=== PATIENT | male | born 1940 | race Caucasian/White ===

== ENCOUNTER → 2016-10-26 | Day surgery (SDC) | payer OTHER ==
[2016-10-18 09:42] VITALS: Ht 177.8 cm; Wt 86.4 kg
[~2016-10-26] VITALS: Ht 177.8 cm; Wt 86.4 kg
[~2016-10-26] MED LIST: 500ML BSS 0.3ML EPI 1:1000PF IRRIG ONE; ACETAMINOPHEN 325 MG TAB PO PRN; AMVISC PLUS 0.8ML SYRINGE INT OCU ONE; ASPEC81 PO; ATOR-24 PO; ATROPINE SULFATE 0.1 MG/ML 5ML SYR IV PRN; AcetaZOLAMIDE 250 MG TAB PO SCH; BETAXOLOL HCL 0.25% OP SUSP PER DROP CHARGE OPR SCH; BRIMONIDINE TART 0.2% OP SOLN PER DROP CHARGE ONE; BSS FLUSH ONE; CHOL100010 PO; ENDOCOAT 0.85ML SYRINGE INT OCU ONE; EpINEphrine INJ 1MG/ML AMP 1 MG/ML AMP ONE; GLC500 PO; ISR/5 PO; LACTATED RINGER'S 1000ML 500 ML IV SCH; LIDOCAINE 4% OP SOLN DROP CHARGE ONE; LIDOCAINE 4% OP SOLN DROP CHARGE OPR SCH; LIDOCAINE HCL 1% MPF 2 ML VIAL ONE; METO25TA56 PO; MIDAZOLAM HCL 1 MG/ML 2ML VIAL ONE; MIX: 4ML BSS 1ML EPI 1:1000 PF INSTIL ONE; MOXIFLOXACIN OPH SOLN PER DROP CHARGE ONE; NTRGSL.4 SL; OCUCOAT 1 ML SOLN IO ONE; POVIDONE-IODINE OP SOLN 30 ML BTL ONE; PROPARACAINE 0.5% OP SOLN PER DROP CHARGE OPR SCH; SENNTAB23 PO; SPIR25TA PO; TELM40TA11 PO; TOBRAMYCIN/DEXAMETHASONE OPH OINT PER APPLN CHARGE ONE; fiber caps PO
--- NOTE | 2016-10-26 06:47 | History & Physical Bridge - SC ---
H&P Re-Evaluation Bridge Note: I have examined the patient, reviewed the History & Physical and in the interval since the performance of the History & Physical I have noted the following changes of clinical significance: No changes noted
[2016-10-26] MEDS: PHENYLEPHRINE HCL 2.5% OP SOLN PER DROP CHARGE OPR SCH ×2 (07:14→07:21)
[2016-10-26] MEDS: TROPICAMIDE 1% OP SOLN PER DROP CHARGE OPR SCH ×2 (07:15→07:22)
[2016-10-26] MEDS: CYCLOPENTOLATE HCL 1% OP SOLN PER DROP CHARGE OPR SCH ×2 (07:16→07:23)
[2016-10-26] MEDS: MOXIFLOXACIN OPH SOLN PER DROP CHARGE OPR SCH ×2 (07:17→07:27)
--- NOTE | 2016-10-26 07:52 | Discharge Instructions-SurgCtr ---
Discharge Instructions Date of Service Oct 26, 2016. Visit Reason for Visit: Cataract Right Eye Discharge Discharge Diagnosis / Problem: lens implant right eye Discharge Goals Goal(s): Improve function Activity Recommendations Activity Limitations: resume your previous activity Lifting Limitations: no more than 10 pounds Exercise/Sports Limitations: gradually increase as tolerated May Resume Sexual Activity: when tolerated Shower/Bathe: tomorrow Driving or Machine Use: resume 1 day after discharge Anesthesia . Post Anesthesia Instructions: If you have had General Anesthesia or IV Sedation: * Do not drive today. * Resume driving when surgeon permits. * Do not make important decisions or sign legal documents today. * Call surgeon for: 1. Temperature elevations greater than 101 degrees F. 2. Uncontrollable pain. 3. Excessive bleeding. 4. Persistent nausea and vomiting. 5. Medication intolerance (nausea, vomiting or rash). * For nausea and vomiting use only clear liquids such as: tea, soda, bouillon until nausea subsides, then gradually increase diet as tolerated. * If you have any concerns or questions, call your surgeon's office. If physician is unavailable and it is an emergency, call 911 or go to the nearest emergency room. . Instructions / Follow-Up Instructions / Follow-Up ACTIVITY RECOMMENDATIONS: * Light activities. * Mild irritation and blurred vision are common for the first few days. * You may walk outside, read, watch television. * Redness around the white part of the eye is common. MEDICATIONS: Resume previous medications unless instructed otherwise by your surgeon. * Take white Diamox (Acetazolamide) tablet at 1 pm today. Start all eye drops at 1 pm today: * Eye drops (today and tomorrow): Prednisone - one drop in operative eye every 3 hours while awake Ofloxacin - one drop in operative eye every 3 hours while awake SPECIAL CARE INSTRUCTIONS: * Tape plastic shield over eye to sleep at night. Call your doctor at with any concerns or problems. FOLLOW UP VISIT: Follow-up with Dr Mata at [place] office as scheduled. Diet Recommendations Home Diet: no limitations Procedures Procedures Performed: cataract extraction with lens implant Pending Studies Studies pending at discharge: no Medical Emergencies . Who to Call and When: Medical Emergencies: If at any time you feel your situation is an emergency, please call 911 immediately. . Non-Emergent Contact Non-Emergency issues call your: Family Dentist Call Non-Emergent contact if: your pain is not controlled [phone] . . "Provider Documentation" section prepared by Micah Mata. .
--- NOTE | 2016-10-26 07:54 | [facility] Operative Report ---
Operative Report Date of Service Oct 26, 2016. Operative Report 1. PREOPERATIVE DIAGNOSIS: Senile Posterior Subcapsular Cataract, right eye. 2. POSTOPERATIVE DIAGNOSIS: Senile Posterior Subcapsular Cataract, right eye. 3. PROCEDURE: Phacoemulsification of right cataract with posterior chamber lens implant, type Bausch & Lomb, model MX60, power +22 diopters. ANESTHESIA: Local standby. SURGEON: Dr. Mata. COMPLICATIONS: None. OPERATING TIME: 10 minutes. 4. OPERATION AND FINDINGS: DESCRIPTION OF PROCEDURE: The right pupil was dilated. The anesthetic was administered using a topical technique. The right eye was prepped and draped. A speculum was placed. A clear corneal incision was formed. The chamber was filled with Amvisc Plus and Endocoat. Epinephrine solution was used. A paracentesis was placed. A capsulorrhexis was performed. The nucleus was hydrodissected. The lens was removed with phacoemulsification. Time was 2.72 seconds. The aspiration unit was used to remove the cortex. The capsule was filled with Amvisc Plus. The lens implant was folded and placed into the capsule. The incision was hydrated. The Amvisc was aspirated. The wound was secure. The chamber was deep. The pupil was round. Brimonidine, TobraDex ointment and Vigamox solution were placed. The speculum was removed. The patient was returned to the Recovery Room in stable condition. I attest to the content of the Intraoperative Record and any orders documented therein. Any exceptions are noted below. The scribe's documentation has been prepared in my presence, under my direction and personally reviewed by me in its entirety. I confirm that the note above accurately reflects all work, treatment, procedures, and medical decision making performed by me. I personally scribed for Micah Mata M.D. ([email or web address]) on 10/26/16 at 07:54. Electronically submitted by Radha Snow ([email or web address]).
[2016-10-26 07:58] VITALS: TEMP 36.9
[2016-10-26 08:19] VITALS: BP 128/82; PULSE 59; O2SAT 99
--- NOTE | 2016-10-26 08:22 | Anesthesia Progress Nt - [facility] ---
Anesthesia Post Op Note Date & Time Oct 26, 2016 at 08:21 Vital Signs Pain Intensity: 0 Vital Signs Past 12 Hours Date Time Temp Pulse Resp B/P (MAP) Pulse Ox O2 Delivery O2 Flow Rate FiO2 10/26/16 08:19 59 16 128/82 (97) 99 10/26/16 07:58 36.9 60 14 120/73 (89) 100 Room Air 10/26/16 07:05 37.0 58 20 120/80 (93) 98 Room Air Notes Mental Status: alert / awake / arousable, participated in evaluation Pt Amnestic to Procedure: Yes Nausea / Vomiting: adequately controlled Pain: adequately controlled Airway Patency, RR, SpO2: stable & adequate BP & HR: stable & adequate Hydration State: stable & adequate Anesthetic Complications: no major complications apparent
== END | disposition home or self-care (01) ==
LOC: X.SURG 06:31
PROVIDERS: ATTEND Specialist
DX: H25.041 Posterior subcapsular polar age-related cataract, right eye (principal); I10 Essential (primary) hypertension; Z79.899 Other long term (current) drug therapy

== ENCOUNTER → 2016-11-09 | Day surgery (SDC) | payer OTHER ==
[2016-11-03 10:20] VITALS: Ht 177.8 cm; Wt 86.4 kg
[~2016-11-09] VITALS: Ht 177.8 cm; Wt 86.4 kg
[~2016-11-09] MED LIST changes: +BETAXOLOL HCL 0.25% OP SUSP PER DROP CHARGE OPL SCH; -BETAXOLOL HCL 0.25% OP SUSP PER DROP CHARGE OPR SCH; +EpHEDrine SULFATE INJ 50 MG/ML AMP IV PRN; +LIDOCAINE 4% OP SOLN DROP CHARGE OPL SCH; -LIDOCAINE 4% OP SOLN DROP CHARGE OPR SCH; +PROPARACAINE 0.5% OP SOLN PER DROP CHARGE OPL SCH; -PROPARACAINE 0.5% OP SOLN PER DROP CHARGE OPR SCH
[2016-11-09] MEDS: PHENYLEPHRINE HCL 2.5% OP SOLN PER DROP CHARGE OPL SCH ×2 (08:24→08:29)
[2016-11-09] MEDS: TROPICAMIDE 1% OP SOLN PER DROP CHARGE OPL SCH ×2 (08:25→08:30)
[2016-11-09] MEDS: CYCLOPENTOLATE HCL 1% OP SOLN PER DROP CHARGE OPL SCH ×2 (08:26→08:31)
[2016-11-09] MEDS: MOXIFLOXACIN OPH SOLN PER DROP CHARGE OPL SCH ×2 (08:27→08:39)
--- NOTE | 2016-11-09 09:24 | Discharge Instructions-SurgCtr ---
Discharge Instructions Date of Service Nov 09, 2016. Visit Reason for Visit: Cataract Left Eye Discharge Discharge Diagnosis / Problem: lens implant left eye Discharge Goals Goal(s): Improve function Activity Recommendations Activity Limitations: resume your previous activity Lifting Limitations: no more than 10 pounds Exercise/Sports Limitations: gradually increase as tolerated May Resume Sexual Activity: when tolerated Shower/Bathe: tomorrow Driving or Machine Use: resume 1 day after discharge Anesthesia . Post Anesthesia Instructions: If you have had General Anesthesia or IV Sedation: * Do not drive today. * Resume driving when surgeon permits. * Do not make important decisions or sign legal documents today. * Call surgeon for: 1. Temperature elevations greater than 101 degrees F. 2. Uncontrollable pain. 3. Excessive bleeding. 4. Persistent nausea and vomiting. 5. Medication intolerance (nausea, vomiting or rash). * For nausea and vomiting use only clear liquids such as: tea, soda, bouillon until nausea subsides, then gradually increase diet as tolerated. * If you have any concerns or questions, call your surgeon's office. If physician is unavailable and it is an emergency, call 911 or go to the nearest emergency room. . Instructions / Follow-Up Instructions / Follow-Up ACTIVITY RECOMMENDATIONS: * Light activities. * Mild irritation and blurred vision are common for the first few days. * You may walk outside, read, watch television. * Redness around the white part of the eye is common. MEDICATIONS: Resume previous medications unless instructed otherwise by your surgeon. * Take white Diamox (Acetazolamide) tablet at 1 pm today. Start all eye drops at 1 pm today: * Eye drops (today and tomorrow): Prednisone - one drop in operative eye every 3 hours while awake Ofloxacin - one drop in operative eye every 3 hours while awake SPECIAL CARE INSTRUCTIONS: * Tape plastic shield over eye to sleep at night. Call your doctor at with any concerns or problems. FOLLOW UP VISIT: Follow-up with Dr Mata at [place] office as scheduled. Diet Recommendations Home Diet: no limitations Procedures Procedures Performed: cataract extraction with lens implant Pending Studies Studies pending at discharge: no Medical Emergencies . Who to Call and When: Medical Emergencies: If at any time you feel your situation is an emergency, please call 911 immediately. . Non-Emergent Contact Non-Emergency issues call your: Housekeeper Head Call Non-Emergent contact if: your pain is not controlled [phone] . . "Provider Documentation" section prepared by Micah Mata. .
--- NOTE | 2016-11-09 09:26 | [facility] Operative Report ---
Operative Report Date of Service Nov 09, 2016. Operative Report 1. PREOPERATIVE DIAGNOSIS: Senile Posterior Subcapsular Cataract, left eye. 2. POSTOPERATIVE DIAGNOSIS: Senile Posterior Subcapsular Cataract, left eye. 3. PROCEDURE: Phacoemulsification of left cataract with posterior chamber lens implant, type Bausch & Lomb, model MX60, power +23.0 diopters. ANESTHESIA: Local standby. SURGEON: Dr. Mata. COMPLICATIONS: None. OPERATING TIME: 10 minutes. 4. OPERATION AND FINDINGS: DESCRIPTION OF PROCEDURE: The left pupil was dilated. The anesthetic was administered using a topical technique. The left eye was prepped and draped. A speculum was placed. A clear corneal incision was formed. The chamber was filled with Amvisc Plus and Endocoat. Epinephrine solution was used. A paracentesis was placed. A capsulorrhexis was performed. The nucleus was hydrodissected. The lens was removed with phacoemulsification. Time was 5.27 seconds. The aspiration unit was used to remove the cortex. The capsule was filled with Amvisc Plus. The lens implant was folded and placed into the capsule. The incision was hydrated. The Amvisc was aspirated. The wound was secure. The chamber was deep. The pupil was round. Brimonidine, TobraDex ointment and Vigamox solution were placed. The speculum was removed. The patient was returned to the Recovery Room in stable condition. I attest to the content of the Intraoperative Record and any orders documented therein. Any exceptions are noted below. The scribe's documentation has been prepared in my presence, under my direction and personally reviewed by me in its entirety. I confirm that the note above accurately reflects all work, treatment, procedures, and medical decision making performed by me. I personally scribed for Micah Mata M.D. ([email or web address]) on 11/09/16 at 09:26. Electronically submitted by Radha Snow ([email or web address]).
[2016-11-09 09:27] VITALS: TEMP 36.4
--- NOTE | 2016-11-09 09:47 | Anesthesia Progress Nt - [facility] ---
Anesthesia Post Op Note Date & Time Nov 09, 2016 at 09:47 Vital Signs Pain Intensity: 0 Vital Signs Past 12 Hours Date Time Temp Pulse Resp B/P (MAP) Pulse Ox O2 Delivery O2 Flow Rate FiO2 11/09/16 08:15 36.6 63 22 123/81 (95) 98 Room Air Notes Mental Status: alert / awake / arousable, participated in evaluation Pt Amnestic to Procedure: Yes Nausea / Vomiting: adequately controlled Pain: adequately controlled Airway Patency, RR, SpO2: stable & adequate BP & HR: stable & adequate Hydration State: stable & adequate Anesthetic Complications: no major complications apparent
[2016-11-09 09:58] VITALS: BP 129/75; PULSE 61; O2SAT 99
== END | disposition home or self-care (01) ==
LOC: X.SURG 07:37
PROVIDERS: ATTEND Specialist
DX: H25.042 Posterior subcapsular polar age-related cataract, left eye (principal); I10 Essential (primary) hypertension; Z79.899 Other long term (current) drug therapy

== ENCOUNTER 2022-06-28 18:36 | Inpatient (IN) ==
[2022-06-28] MEDS ORDERED: SODIUM CHLORIDE 0.9% 1000ML 1,000 ML IV ONE (18:55)
--- NOTE | 2022-06-28 19:00 | Emergency Department Note ---
Impression & Plan COVID-19, Weakness, Elevated troponin ED Provider Note NAME: STEFFANIE STONE AGE: 82 SEX: M : 1940 ARRIVES VIA: Ambulance INFORMANT: Patient ED PROVIDER(S): Pranav Carlin DO CHIEF COMPLAINT: covid + and weak HPI: Patient is an 82-year-old male who presents the ER with a past medical history of ischemic cardiomyopathy, CAD, systolic heart failure with a defibrillator in place with symptoms that started about 9 days ago. He and his both tested positive for COVID about 4 days ago. He notes he was having cough, congestion and shortness of breath with the coughing. The coughing has improved about 90%. He now just feels very weak and rundown. He is having diarrhea. No dysuria urgency or frequency. No belly pain. No shortness of breath unless he is coughing. He is bringing up some phlegm. No fevers. Overall he is feeling better but still feels very tired and lightheaded and consequently came in. PAST MEDICAL HISTORY:See Below PAST SURGICAL HISTORY:See Below FAMILY HISTORY:See Below SOCIAL HISTORY:See Below HOME MEDICATIONS:See Below ALLERGIES:See Below VITALS:See Below PHYSICAL EXAMINATION: GENERAL: Sitting up in bed, alert, disheveled, intermittent cough EYE EXAM: normal conjunctiva. OROPHARYNX: mucous membranes are dry NECK: supple, no nuchal rigidity, no adenopathy, non-tender LUNGS: Clear to auscultation. Normal chest wall mechanics HEART: no murmurs, S1 normal and S2 normal ABDOMEN: abdomen soft, non-tender, normo-active bowel sounds, no masses, no mario ound or guarding. UPPER EXTREMITIES: upper extremities are grossly normal. LOWER EXTREMITIES: No pitting edema. NEURO EXAM: Normal sensorium, cranial nerves II-XII grossly intact, normal speech, no gross weakness of arms, no gross weakness of legs. MEDICAL DECISION MAKING: Patient is an 82-year-old male who presents the ER via EMS was found to be hypotensive and has COVID infection was started about 9 days ago. IV was established blood work was obtained. He was given IV fluids prior to arrival. Labs show no significant leukocytosis or anemia. BMP with mild hypokalemia at 3.4. Creatinine at 1.9 consistent with baseline. COVID is positive. Troponin was elevated at 41 with no previous to based off of. EKG is unchanged from previous. External records were reviewed. He was given IV fluids. He was updated bedside. He was discussed with the hospitalist for further evaluation treatment and management. Triage Nursing notes reviewed. Limited review of prior medical records performed Vital Signs: reviewed and remarkable for no significant abnormalities Differential diagnosis: Differential diagnoses includes but is not limited to pneumonia, bronchitis, COPD/Asthma exacerbation, pneumothorax, pulmonary embolism, congestive heart failure, acute coronary syndrome ER treatment provided: See below Diagnostics interpreted by me include EKG and cardiac monitoring as listed below: -Cardiac Monitoring: An order was placed for continuous cardiac monitoring. The monitor shows a rate of 72 with sinus rhythm. -ECG: Atrial paced rate of 62 Left axis PVC QTc 440 Septal Q waves as well as inferior Q waves with no significant change from previous -Laboratory studies:Interpreted by me as stated above in MDM and shown below. Imaging studies: Xrays: As interpreted by me: Portable AP upright 1 view of the chest shows no focal infiltrate CTs show: none Consultation(s): As described in [facility] Procedures:none Critical Care: None Past Med/Surg History Medical History Chronic systolic heart failure Coronary artery disease Diabetes mellitus, type 2 Dual implantable cardioverter-defibrillator in situ (~11/05/10) meditronic--replaced 04/10/18 Ischemic cardiomyopathy Myocardial Infarction (~02/20/09) had heart cath with 1 stent placed---follows with Dr. Gonzales--was on eliquis, however pt states that was stopped and he currently takes 81mg aspirin daily Sensation of foreign body in throat reason for scheduled EGD Surgical History History of bilateral cataract extraction History of cardiac cath (~2008) with 1 stent placed History of cholecystectomy History of heart artery stent (~02/20/09) 1 stent placed History of hernia repair History of tooth extraction all upper teeth removed S/P ICD (internal cardiac defibrillator) procedure (~11/05/10) meditronic--originally placed @ [facility] 11/05/10--replaced 04/10/18 Family History Other Family history non-contributory No family history of adverse response to anesthesia Social History Smoking Status: Former smoker Second Hand Exposure: No; Hx Alcohol Use: Yes Alcohol type: beer Hx Substance Use: No Preferred Language: [place] Communication Ability: Effective [place] [place] Required: No Beliefs That Will Affect Care: None marital status: Current Living Situation: Spouse Feels Safe at Home: Yes Assistive Devices: Denture - Upper and Glasses Allergies Allergies Allergy/AdvReac Type Severity Reaction Status Date / Time lisinopril Allergy Intermediate HIVES Verified 03/14/22 10:44 Home Meds Home Medications Medication Instructions Recorded Confirmed docusate sodium 100 mg capsule 100 mg PO BID 01/03/19 06/28/22 furosemide 40 mg tablet 40 mg PO QAM #30 tabs 01/03/19 06/28/22 nitroglycerin 0.4 mg sublingual 0.4 mg sublingual Q5M PRN chest 01/03/19 06/28/22 tablet pain #25 tabs spironolactone 25 mg tablet 25 mg PO QAM #30 tabs 01/03/19 06/28/22 atorvastatin 80 mg tablet 80 mg PO HS 02/28/20 06/28/22 aspirin 81 mg chewable tablet 81 mg PO DAILY 06/28/22 06/28/22 (Aspirin Childrens) carvedilol 6.25 mg tablet 6.25 mg PO AMHS 06/28/22 06/28/22 cholecalciferol (vitamin D3) 50 50 mcg PO QAM 06/28/22 06/28/22 mcg (2,000 unit) capsule (Vitamin D3) dulaglutide 3 mg/0.5 mL 3 mg subcut WK 06/28/22 06/28/22 subcutaneous pen injector (Trulicity) guaifenesin 400 mg tablet 400 mg PO BID 06/28/22 06/28/22 Previous Rx's Medication Instructions Recorded omeprazole 20 mg capsule,delayed 20 mg PO BID 3 months #180 caps 02/08/22 release sacubitril 24 mg-valsartan 26 mg 1 tab PO BID #180 tabs 03/01/22 tablet (Entresto) Results & Data (ED) Vital Signs Vital Signs - 24 hr 06/28/22 18:45 06/28/22 18:45 06/28/22 19:23 Temperature 36.9 C Temperature Source Oral Pulse Rate 70 60 Pulse Rate from SpO2 Sensor 60 Respiratory Rate 14 21 Blood Pressure 108/85 Blood Pressure Mean 92 Pulse Oximetry 98 96 Oxygen Delivery Method Room Air Room Air Room Air Sepsis Recent Fever Within 48 Hours No Sepsis New/Unexplained Change in Mental Status No Sepsis Action Taken by Nursing No Action Required 06/28/22 19:30 06/28/22 19:59 06/28/22 19:59 Temperature Temperature Source Pulse Rate 60 60 Pulse Rate from SpO2 Sensor 60 60 Respiratory Rate 19 20 Blood Pressure 120/60 Blood Pressure Mean 80 Pulse Oximetry 95 95 Oxygen Delivery Method Sepsis Recent Fever Within 48 Hours Sepsis New/Unexplained Change in Mental Status Sepsis Action Taken by Nursing 06/28/22 20:00 06/28/22 20:00 06/28/22 20:30 Temperature Temperature Source Pulse Rate 63 60 Pulse Rate from SpO2 Sensor 34 L 60 Respiratory Rate 19 19 Blood Pressure 103/62 Blood Pressure Mean 75 Pulse Oximetry 94 96 Oxygen Delivery Method Sepsis Recent Fever Within 48 Hours Sepsis New/Unexplained Change in Mental Status Sepsis Action Taken by Nursing 06/28/22 21:00 06/28/22 21:00 06/28/22 21:30 Temperature Temperature Source Pulse Rate 59 L 59 L Pulse Rate from SpO2 Sensor 59 L 58 L Respiratory Rate 21 19 Blood Pressure 108/62 Blood Pressure Mean 77 Pulse Oximetry 95 97 Oxygen Delivery Method Sepsis Recent Fever Within 48 Hours Sepsis New/Unexplained Change in Mental Status Sepsis Action Taken by Nursing 06/28/22 22:21 06/28/22 22:30 06/28/22 22:41 Temperature Temperature Source Pulse Rate 68 60 Pulse Rate from SpO2 Sensor 60 Respiratory Rate 17 13 Blood Pressure 113/67 Blood Pressure Mean 82 Pulse Oximetry 96 Oxygen Delivery Method Sepsis Recent Fever Within 48 Hours Sepsis New/Unexplained Change in Mental Status Sepsis Action Taken by Nursing 06/28/22 22:41 06/28/22 23:00 06/28/22 23:30 Temperature Temperature Source Pulse Rate 79 63 60 Pulse Rate from SpO2 Sensor 79 64 Respiratory Rate 18 23 Blood Pressure Blood Pressure Mean Pulse Oximetry 95 90 Oxygen Delivery Method Sepsis Recent Fever Within 48 Hours Sepsis New/Unexplained Change in Mental Status Sepsis Action Taken by Nursing 06/28/22 23:30 06/29/22 00:00 06/29/22 00:00 Temperature Temperature Source Pulse Rate 60 60 Pulse Rate from SpO2 Sensor 60 60 Respiratory Rate 11 L 23 Blood Pressure 87/56 L Blood Pressure Mean 66 Pulse Oximetry 93 90 Oxygen Delivery Method Sepsis Recent Fever Within 48 Hours Sepsis New/Unexplained Change in Mental Status Sepsis Action Taken by Nursing 06/29/22 00:04 06/29/22 00:05 Temperature Temperature Source Pulse Rate 60 Pulse Rate from SpO2 Sensor 60 Respiratory Rate 20 Blood Pressure 87/59 L Blood Pressure Mean 68 Pulse Oximetry 92 Oxygen Delivery Method Sepsis Recent Fever Within 48 Hours Sepsis New/Unexplained Change in Mental Status Sepsis Action Taken by Nursing Laboratory Data 06/28/22 19:56 06/28/22 19:56 Lab Results 06/28/22 06/28/22 06/28/22 Range/Units 19:20 19:56 19:56 WBC 5.96 (4.8-10.8) K/ul RBC 4.52 L (4.70-6.10) M/uL Hgb 13.7 L (14.0-18.0) g/dl Hct 40.8 L (42.0-52.0) % MCV 90.3 (80.0-100.0) fL MCH 30.3 (25.0-34.0) pg MCHC 33.6 (32.0-36.0) g/dL RDW Std Deviation 42.0 (36.4-46.3) fL RDW Coeff of Cristela 12.8 (11.5-14.5) % Plt Count 170 (130-400) K/uL MPV 11.5 (9.4-12.4) fL Immature Gran % (Auto) 0.7 % Neut % (Auto) 72.3 % Lymph % (Auto) 17.1 % [place] % (Auto) 9.4 % Eos % (Auto) 0.3 % Baso % (Auto) 0.2 % Neut # (Auto) 4.31 (1.40-6.50) K/uL Lymph # (Auto) 1.02 L (1.2-3.4) K/uL [place] # (Auto) 0.56 (0.11-0.59) K/uL Eos # (Auto) 0.02 (0-0.50) K/uL Baso # (Auto) 0.01 (0-0.2) K/uL Immature Gran # (Auto) 0.04 (0.01-0.20) K/uL Sodium 139 (136-145) mmol/L Potassium 3.4 L (3.5-5.1) mmol/L Chloride 102 (98-107) mmol/L Carbon Dioxide 24 (21-32) mmol/L Anion Gap 13 H (3-11) BUN 46 H (6-23) mg/dl Creatinine 1.98 H (0.6-1.4) mg/dl Est Cr Clr Drug Dosing 30.2 ml/min Est GFR ( Amer) 35.7 ml/min Est GFR (Non-Af Amer) 30.8 ml/min BUN/Creatinine Ratio 23.2 H (10-20) Glucose 151 H (70-99(Fasting)) mg/dl Calcium 8.2 L (8.5-10.1) mg/dl Magnesium 1.9 (1.7-2.4) mg/dl Total Bilirubin 1.0 (0.2-1.0) mg/dl AST 20 (13-39) U/L ALT 11 (7-52) U/L Alkaline Phosphatase 61 (34-104) U/L Troponin I High Sens 41.6 H (0-20) pg/ml Total Protein 6.7 (6.0-8.3) gm/dl Albumin 3.7 (3.4-5.0) gm/dl Globulin 3.0 (2.5-4.0) gm/dl Albumin/Globulin Ratio 1.2 (0.9-2) Lipase 26 (11-82) U/L SARS-CoV-2 (PCR) POSITIVE A* (Negative) Influenza Type A (PCR) Negative (Neg) Influenza Type B (PCR) Negative (Neg) RSV (RT-PCR) Negative (Neg) Administered Medications Lactated Ringer's (Lr) 1,000 mls @ 100 mls/hr IV .Q10H ONE Stop: 06/29/22 07:58 Last Admin: 06/28/22 22:52 Dose: 60 mls/hr Documented By: ENS Discontinued Medications Sodium Chloride (Nss 1000ml) 1,000 mls @ 999 mls/hr IV .Q1H1M ONE Stop: 06/28/22 19:55 Last Infusion: 06/28/22 22:03 Dose: 0 mls/hr Documented By: Admin: 06/28/22 19:56 Dose: 999 mls/hr Documented By: AW Potassium Chloride (Potassium Chloride Pwd 20 Meq Pack) 40 meq PO NOW STA Stop: 06/28/22 21:59 Last Admin: 06/28/22 22:52 Dose: 40 meq Documented By: ENS Imaging Data Radiologist's Impression: Chest X-Ray 06/28/22 18:55 XR chest 1V portable CLINICAL HISTORY: Chest pain, nonspecific COMPARISON STUDY: Chest radiograph May 27, 2019. FINDINGS: Left subclavian pacer/AICD is in place. Cardiomegaly is unchanged. There is no evidence for pulmonary edema. There is no pneumothorax or pleural effusion. No consolidation is identified. No change in appearance of the chest. IMPRESSION: No acute cardiopulmonary findings. No change in appearance of the chest. ACT 112: Negative or not required by law. Electronically signed by: Torin Rene M.D. 06/28/2022 7:32 PM Discharge Plan Visit Data Chief Complaint: Illness Stated Complaint: SOB, COVID + ED Provider: Pranav Carlin Discharge Problem: COVID-19, Weakness, Elevated troponin Forms Stand Alone Forms: My [facility] Prescriptions Prescriptions: No Action Entresto 24-26 mg tablet 1 tab PO BID Qty: 180 3RF Rx Instructions: jacinta says q am .. first indicates bid...our old record says bid spironolactone 25 mg tablet 25 mg PO QAM Qty: 30 docusate sodium 100 mg capsule 100 mg PO BID furosemide 40 mg tablet 40 mg PO QAM Qty: 30 nitroglycerin 0.4 mg tablet, sublingual 0.4 mg SL Q5M PRN (Reason: chest pain) Qty: 25 atorvastatin 80 mg tablet 80 mg PO HS omeprazole 20 mg capsule,delayed release(DR/EC) 20 mg PO BID 90 Days Qty: 180 3RF cholecalciferol (vitamin D3) [Vitamin D3] 50 mcg (2,000 unit) Capsule 50 mcg PO QAM Trulicity 3 mg/0.5 mL pen injector 3 mg SUBCUT WK carvedilol 6.25 mg tablet 6.25 mg PO AMHS aspirin [Aspirin Childrens] 81 mg Tablet,Chewable 81 mg PO DAILY guaifenesin 400 mg Tablet 400 mg PO BID Referrals Referrals: Jose Alfredo Ames MD [Primary Care Provider] -
--- NOTE | 2022-06-28 19:34 | XRay Report ---
XR chest 1V portable CLINICAL HISTORY: Chest pain, nonspecific COMPARISON STUDY: Chest radiograph May 27, 2019. FINDINGS: Left subclavian pacer/AICD is in place. Cardiomegaly is unchanged. There is no evidence for pulmonary edema. There is no pneumothorax or pleural effusion. No consolidation is identified. No ch saloni in appearance of the chest. IMPRESSION: No acute cardiopulmonary findings. No change in appearance of the chest. ACT 112: Negative or not required by law. Electronically signed by: Torin Rene M.D. 06/28/2022 7:32 PM
[2022-06-28 20:35] LABS: Influenza A virus by PCR Negative (Neg); Influenza B virus by PCR Negative (Neg); RSV by PCR Negative (Neg)
[2022-06-28 20:45] LABS: Basophils # (auto) 0.01 K/uL (0-0.2); Basophils % (auto) 0.2 %; Eosinophils # (auto) 0.02 K/uL (0-0.50); Eosinophils % (auto) 0.3 %; Hematocrit (blood only) 40.8 % (42.0-52.0); Hemoglobin 13.7 g/dl (14.0-18.0); Immature Granulocytes # (auto) 0.04 K/uL (0.01-0.20); Immature Granulocytes % (auto) 0.7 %; Lymphocytes # (auto) 1.02 K/uL (1.2-3.4); Lymphocytes % (auto) 17.1 %; Mean Corpuscular Hemoglobin 30.3 pg (25.0-34.0); Mean Corpuscular Hgb Conc 33.6 g/dL (32.0-36.0); Mean Corpuscular Volume 90.3 fL (80.0-100.0); Mean Platelet Volume 11.5 fL (9.4-12.4); Monocytes # (auto) 0.56 K/uL (0.11-0.59); Monocytes % (auto) 9.4 %; Neutrophils # (auto) 4.31 K/uL (1.40-6.50); Neutrophils % (auto) 72.3 %; Platelet Count 170 K/uL (130-400); RDW Coefficient of Variation 12.8 % (11.5-14.5); Red Blood Count 4.52 M/uL (4.70-6.10); White Blood Count 5.96 K/ul (4.8-10.8)
[2022-06-28 20:45] LABS: SARS CoV2 RNA(COVID-19) Ceph POSITIVE (Negative)
[2022-06-28 20:59] LABS: Albumin Globulin Ratio 1.2 (0.9-2); Albumin Level 3.7 gm/dl (3.4-5.0); BUN Creatinine Ratio 23.2 (10-20); Calcium 8.2 mg/dl (8.5-10.1); Creatinine Clr Calc Pharmacy 30.2 ml/min; Est GFR (African American) 35.7 ml/min; Est GFR (Non-African American) 30.8 ml/min; Potassium 3.4 mmol/L (3.5-5.1); Total Protein 6.7 gm/dl (6.0-8.3)
[2022-06-28 21:06] LABS: Troponin I High Sensitivity 41.6 pg/ml (0-20)
[2022-06-28] MEDS ORDERED: POTASSIUM CHLORIDE PWD 20 MEQ PACK PO STA (21:58)
[2022-06-28] MEDS ORDERED: LACTATED RINGER'S 1,000 ML IV ONE (21:59)
[2022-06-28 22:29] LABS: Magnesium 1.9 mg/dl (1.7-2.4)
[2022-06-29] MEDS ORDERED: MAGNESIUM SULFATE / D5W 1 GM/100 ML BAG IV ONE (01:46)
[2022-06-29] MEDS ORDERED: dexAMETHasone 6 MG in SYRINGE 0 ML IV ONE (02:00)
[2022-06-29] MEDS ORDERED: dexAMETHasone 4 MG in SYRINGE 0 ML IV ONE (02:00)
[2022-06-29 02:10] LABS: Partial Thromboplastin Ratio 1.1
--- NOTE | 2022-06-29 02:40 | History & Physical Report ---
Date of Service June 29, 2022 Assessment & Plan (1) COVID-19: Plan: Severe COVID-19 illness Documented O2 sats less than 94% at the ER. Troponin elevation secondary to illness in the setting of kidney dysfunction chronic systolic heart failure secondary to ischemic cardiomyopathy (EF 20 to 25%, TTE 2019) status post ICD, patient on the dry side hx PAF/PSVT, not on anticoagulation CAD status post stent hypertension, BP on the lower side hyperlipidemia on statin Rx DM 2 on Trulicity, suboptimal control as of recent hemoglobin A1c of 8.4 last March 2022 CRI, creatinine at baseline chronic anemia, hemoglobin at baseline past tobacco abuse. Medical telemetry Decadron given severe COVID-19 illness No indication for antibiotics for now. Follow troponin, TTE if with progression Gentle IV hydration appropriate to hold antihypertensives and home diuretics for now given borderline BP Basal bolus insulin, ISS BG goal 1 10-1 40, carb count coverage, update hemoglobin A1c PT OT eval once medically stable DVT prophylaxis. Heparin subcu DNR Text document was generated using [employer] voice recognition software. It may contain grammatical or spelling errors. Kindly contact undersigned for clarification of any documentation item in [employer]. History of Present Illness Chief Complaint: COVID, sick and weak Primary Care Provider: Jose Alfredo Ames MD History obtained from patient, family, and records. Medical history significant for chronic systolic heart failure secondary to is chemic cardiomyopathy (EF 20 to 25%, TTE 2019) status post ICD, PAF/PSVT, CAD status post stent, hypertension, hyperlipidemia, DM 2 on Trulicity, CRI (baseline creatinine 2 ), past chronic anemia (baseline hemoglobin of 13 ), past tobacco abuse. Last confinement 2008 for acute inferior [place] status post bare-metal stent placement. Patient has been sick for about a week. Cough productive of clear sputum, congestion, worsening shortness of breath on exertion. Feeling weak and rundown, poor appetite. Patient and tested positive for COVID-19. Patient has received COVID-19 vaccination. Patient called PCPs office. EMS sent to patient's home. At the ER, lowest O2 sats of 90 on room air. Medical History as above Surgical History : Cholecystectomy, umbilical hernia repair, ICD Family History : Heart disease Personal/Social history : Past tobacco abuse, occasional EtOH intake, retired government foreign policy officer Allergies Allergy/AdvReac Type Severity Reaction Status Date / Time lisinopril Allergy Intermediate HIVES Verified 03/14/22 10:44 Home Medications Medication Instructions Recorded Confirmed Type docusate sodium 100 mg capsule 100 mg PO BID 01/03/19 06/28/22 History furosemide 40 mg tablet 40 mg PO QAM #30 tabs 01/03/19 06/28/22 History nitroglycerin 0.4 mg sublingual 0.4 mg sublingual Q5M PRN chest 01/03/19 06/28/22 History tablet pain #25 tabs spironolactone 25 mg tablet 25 mg PO QAM #30 tabs 01/03/19 06/28/22 History atorvastatin 80 mg tablet 80 mg PO HS 02/28/20 06/28/22 History omeprazole 20 mg capsule,delayed 20 mg PO BID 3 months #180 caps 02/08/22 06/28/22 Rx release sacubitril 24 mg-valsartan 26 mg 1 tab PO BID #180 tabs 03/01/22 06/28/22 Rx tablet (Entresto) aspirin 81 mg chewable tablet 81 mg PO DAILY 06/28/22 06/28/22 History (Aspirin Childrens) carvedilol 6.25 mg tablet 6.25 mg PO AMHS 06/28/22 06/28/22 History cholecalciferol (vitamin D3) 50 50 mcg PO QAM 06/28/22 06/28/22 History mcg (2,000 unit) capsule (Vitamin D3) dulaglutide 3 mg/0.5 mL 3 mg subcut WK 06/28/22 06/28/22 History subcutaneous pen injector (Trulicity) guaifenesin 400 mg tablet 400 mg PO BID 06/28/22 06/28/22 History Past Med/Surg History Medical History Chronic systolic heart failure Coronary artery disease Diabetes mellitus, type 2 Dual implantable cardioverter-defibrillator in situ (~11/05/10) meditronic--replaced 04/10/18 Ischemic cardiomyopathy Myocardial Infarction (~02/20/09) had heart cath with 1 stent placed---follows with Dr. Gonzales--was on eliquis, however pt states that was stopped and he currently takes 81mg aspirin daily Sensation of foreign body in throat reason for scheduled EGD Surgical History History of bilateral cataract extraction History of cardiac cath (~2008) with 1 stent placed History of cholecystectomy History of heart artery stent (~02/20/09) 1 stent placed History of hernia repair History of tooth extraction all upper teeth removed S/P ICD (internal cardiac defibrillator) procedure (~11/05/10) meditronic--originally placed @ [facility] 11/05/10--replaced 04/10/18 Family History Other Family history non-contributory No family history of adverse response to anesthesia Social History Smoking Status: Former smoker Second Hand Exposure: No; Hx Alcohol Use: Yes Alcohol type: beer Hx Substance Use: No Preferred Language: Uzbek Communication Ability: Effective [employer] Production Required: No Beliefs That Will Affect Care: None marital status: Current Living Situation: Spouse Other Information That Helps Us Care for You: No Feels Safe at Home: Yes Safety Concerns: Feels Safe At This Time Assistive Devices: Denture - Upper Review of Systems Review of Systems: As per HPI, all other systems reviewed and negative Physical Exam Physical Exam: GENERAL: Comfortable, pleasant, incessant coughing, no respiratory distress SKIN: Pallor , warm HEENT: Pale palpebral conjunctivae, no ptosis, dry buccal mucosa NECK : Supple, no tenderness CHEST : Decreased breath sounds, no tenderness HEART : RRR, diminished S1-S2, no obvious murmurs ABDOMEN: Some distention, nontender EXTREMITIES : Minimal LE swelling, no LE tenderness, no other conspicuous deformities noted NEUROLOGIC : Coherent, no facial asymmetry, no other gross focality Results & Data Results & Data ([facility]) Vital Signs (Past 12 Hours) Vital Signs Temp Pulse Resp BP Pulse Ox O2 Del Method 06/29/22 01:30 64 18 104/70 91 06/29/22 01:00 61 19 91 06/29/22 01:00 103/57 L 06/29/22 00:30 62 21 93 06/29/22 00:27 61 19 94 06/29/22 00:27 100/54 L 06/29/22 00:05 60 16 93 02/15/23 00:05 87/59 L 06/29/22 00:04 60 20 92 06/29/22 00:00 60 23 90 06/29/22 00:00 87/56 L 06/28/22 23:30 60 11 L 93 06/28/22 23:30 60 06/28/22 23:00 63 23 90 06/28/22 22:41 79 18 95 06/28/22 22:41 113/67 06/28/22 22:30 60 13 96 06/28/22 22:21 68 17 06/28/22 21:30 59 L 19 97 06/28/22 21:00 59 L 21 95 06/28/22 21:00 108/62 06/28/22 20:30 60 19 96 06/28/22 20:00 63 19 94 06/28/22 20:00 103/62 06/28/22 19:59 120/60 06/28/22 19:59 60 20 95 06/28/22 19:30 60 19 95 06/28/22 19:23 60 21 96 Room Air 06/28/22 18:45 Room Air 06/28/22 18:45 36.9 C 70 14 108/85 98 Room Air Laboratory Results Laboratory Results WBC 5.96 K/ul (4.8-10.8) 06/28/22 19:56 RBC 4.52 M/uL (4.70-6.10) L 06/28/22 19:56 Hgb 13.7 g/dl (14.0-18.0) L 06/28/22 19:56 Hct 40.8 % (42.0-52.0) L 06/28/22 19:56 MCV 90.3 fL (80.0-100.0) 06/28/22 19:56 MCH 30.3 pg (25.0-34.0) 06/28/22 19:56 MCHC 33.6 g/dL (32.0-36.0) 06/28/22 19:56 RDW Std Deviation 42.0 fL (36.4-46.3) 06/28/22 19:56 RDW Coeff of Cristela 12.8 % (11.5-14.5) 06/28/22 19:56 Plt Count 170 K/uL (130-400) 06/28/22 19:56 MPV 11.5 fL (9.4-12.4) 06/28/22 19:56 Immature Gran % (Auto) 0.7 % 06/28/22 19:56 Neut % (Auto) 72.3 % 06/28/22 19:56 Lymph % (Auto) 17.1 % 06/28/22 19:56 [place] % (Auto) 9.4 % 06/28/22 19:56 Eos % (Auto) 0.3 % 06/28/22 19:56 Baso % (Auto) 0.2 % 06/28/22 19:56 Neut # (Auto) 4.31 K/uL (1.40-6.50) 06/28/22 19:56 Lymph # (Auto) 1.02 K/uL (1.2-3.4) L 06/28/22 19:56 [place] # (Auto) 0.56 K/uL (0.11-0.59) 06/28/22 19:56 Eos # (Auto) 0.02 K/uL (0-0.50) 06/28/22 19:56 Baso # (Auto) 0.01 K/uL (0-0.2) 06/28/22 19:56 Immature Gran # (Auto) 0.04 K/uL (0.01-0.20) 06/28/22 19:56 APTT 29.0 Seconds (21.0-31.0) 06/28/22 19:55 PTT Ratio 1.1 06/28/22 19:55 Sodium 139 mmol/L (136-145) 06/28/22 19:56 Potassium 3.4 mmol/L (3.5-5.1) L 06/28/22 19:56 Chloride 102 mmol/L (98-107) 06/28/22 19:56 Carbon Dioxide 24 mmol/L (21-32) 06/28/22 19:56 Anion Gap 13 (3-11) H 06/28/22 19:56 BUN 46 mg/dl (6-23) H 06/28/22 19:56 Creatinine 1.98 mg/dl (0.6-1.4) H 06/28/22 19:56 Est Cr Clr Drug Dosing 30.2 ml/min 06/28/22 19:56 Est GFR ( Amer) 35.7 ml/min 06/28/22 19:56 Est GFR (Non-Af Amer) 30.8 ml/min 06/28/22 19:56 BUN/Creatinine Ratio 23.2 (10-20) H 06/28/22 19:56 Glucose 151 mg/dl (70-99(Fasting)) H 06/28/22 19:56 Lactate 1.4 mmol/L (0.4-2.0) 06/29/22 01:07 Calcium 8.2 mg/dl (8.5-10.1) L 06/28/22 19:56 Magnesium 1.9 mg/dl (1.7-2.4) 06/28/22 19:56 Total Bilirubin 1.0 mg/dl (0.2-1.0) 06/28/22 19:56 AST 20 U/L (13-39) 06/28/22 19:56 ALT 11 U/L (7-52) 06/28/22 19:56 Alkaline Phosphatase 61 U/L (34-104) 06/28/22 19:56 Troponin I High Sens 41.6 pg/ml (0-20) H 06/28/22 19:56 Total Protein 6.7 gm/dl (6.0-8.3) 06/28/22 19:56 Albumin 3.7 gm/dl (3.4-5.0) 06/28/22 19:56 Globulin 3.0 gm/dl (2.5-4.0) 06/28/22 19:56 Albumin/Globulin Ratio 1.2 (0.9-2) 06/28/22 19:56 Lipase 26 U/L (11-82) 06/28/22 19:56 SARS-CoV-2 (PCR) POSITIVE (Negative) A* 06/28/22 19:20 Influenza Type A (PCR) Negative (Neg) 06/28/22 19:20 Influenza Type B (PCR) Negative (Neg) 06/28/22 19:20 RSV (RT-PCR) Negative (Neg) 06/28/22 19:20 Impressions Chest X-Ray 06/28/22 18:55 XR chest 1V portable CLINICAL HISTORY: Chest pain, nonspecific COMPARISON STUDY: Chest radiograph May 27, 2019. FINDINGS: Left subclavian pacer/AICD is in place. Cardiomegaly is unchanged. There is no evidence for pulmonary edema. There is no pneumothorax or pleural effusion. No consolidation is identified. No change in appearance of the chest. IMPRESSION: No acute cardiopulmonary findings. No change in appearance of the chest. ACT 112: Negative or not required by law. Electronically signed by: Torin Rene M.D. 06/28/2022 7:32 PM Diagnostic Findings EKG as per my interpretation : Rate 60, paced rhythm
[2022-06-29] MEDS ORDERED: BENZONATATE 100 MG CAPSULE PO ONE (02:45)
[2022-06-29] MEDS ORDERED: LANTUS PER UNIT CHARGE SQ STA (02:46)
[2022-06-29] MEDS ORDERED: PROMETHAZINE HCL 6.25 MG in SODIUM CHLORIDE 0.9% 50 ML IV PRN (02:47)
[2022-06-29] MEDS ORDERED: GLUCAGON FOR INJ 1 MG VIAL SQ PRN (05:43)
[2022-06-29] MEDS ORDERED: GLUCOSE 40% GEL 15 GM TUBE PO PRN (05:43)
[2022-06-29] MEDS ORDERED: CARBOHYDRATES FOR HYPOGLYCEMIA PO PRN (05:43)
[2022-06-29] MEDS ORDERED: DEXTROSE 50% 50 ML SYRINGE IV PRN (05:43)
[2022-06-29] MEDS ORDERED: GLUCOSE 10 TAB/TUBE PO PRN (05:43)
[2022-06-29] MEDS ORDERED: ACETAMINOPHEN 325 MG TAB PO PRN (05:43)
[2022-06-29] MEDS: INSULIN ASPART PER UNIT SC SCH ×4 (06:40→20:44)
[2022-06-29] MEDS: HEPARIN SOD 5,000 UNIT/0.5 ML VIAL SQ SCH ×3 (06:41→21:09)
[2022-06-29 07:38] LABS: Basophils # (auto) 0.01 K/uL (0-0.2); Basophils % (auto) 0.2 %; Eosinophils # (auto) 0.01 K/uL (0-0.50); Eosinophils % (auto) 0.2 %; Hematocrit (blood only) 38.7 % (42.0-52.0); Hemoglobin 12.9 g/dl (14.0-18.0); Immature Granulocytes # (auto) 0.04 K/uL (0.01-0.20); Lymphocytes # (auto) 0.67 K/uL (1.2-3.4); Lymphocytes % (auto) 15.9 %; Mean Corpuscular Hgb Conc 33.3 g/dL (32.0-36.0); Mean Platelet Volume 11.7 fL (9.4-12.4); Monocytes # (auto) 0.11 K/uL (0.11-0.59); Monocytes % (auto) 2.6 %; Neutrophils # (auto) 3.37 K/uL (1.40-6.50); Neutrophils % (auto) 80.1 %; Platelet Count 162 K/uL (130-400); RDW Coefficient of Variation 12.8 % (11.5-14.5); White Blood Count 4.21 K/ul (4.8-10.8)
[2022-06-29 08:36] LABS: BUN Creatinine Ratio 20.9 (10-20); Calcium 7.9 mg/dl (8.5-10.1); Creatinine Clr Calc Pharmacy 32.9 ml/min; Est GFR (African American) 39.5 ml/min; Est GFR (Non-African American) 34.1 ml/min; Potassium 3.8 mmol/L (3.5-5.1)
[2022-06-29 08:42] LABS: Troponin I High Sensitivity 42.1 pg/ml (0-20)
[2022-06-29] MEDS ORDERED: DOCUSATE SODIUM 100 MG CAP PO SCH (09:00)
[2022-06-29 09:01] LABS: Estimated Average Glucose 209 mg/dl; Hemoglobin A1C 8.9 % (4.5-5.6)
[2022-06-29] MEDS: ASPIRIN 81 MG CHEW PO SCH (09:10)
[2022-06-29] MEDS: guaiFENesin 200 MG TAB PO SCH ×2 (09:11→21:10)
[2022-06-29] MEDS: carvediloL 3.125 MG TAB PO SCH ×2 (09:11→21:09)
[2022-06-29] MEDS: PANTOprazole 40 MG TAB PO SCH ×2 (09:11→21:10)
[2022-06-29] MEDS ORDERED: CALCIUM CARBONATE 500 MG CHEWABLE TAB PO PRN (12:32)
--- NOTE | 2022-06-29 14:14 | Hospitalist Progress Note ---
Date of Service June 29, 2022 Assessment & Plan (1) COVID-19: Plan: Severe COVID-19 illness Generalized weakness secondary to above Troponin elevation secondary to illness/CKD -- COVID screen positive --Influenza, RSV screen negative --CXR:No acute cardiopulmonary findings. No change in appearance of the chest. Check CRP, procalcitonin Started on Decadron Saturating well on room air We will discontinue steroids as able Supportive management PT/OT as able Diarrhea Likely secondary to above Stool studies if any recurrence Chronic systolic heart failure H/O Ischemic cardiomyopathy EF 20 to 25%, TTE 2019 S/P ICD Continue home medications Resume home diuretics as able PAF/PSVT Not on anticoagulation Coreg dose decreased to 3.125 mg twice daily due to low BP Monitor and adjust Coreg dose as needed CAD S/P stent Continue aspirin, Lipitor, carvedilol Hyperlipidemia on statin DM II on Trulicity, HbA1C 8.18 Mar 2022 Continue Insulin per protocol Monitor BGs 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 Monitor renal function Avoid nephrotoxic agents as able DVT Px: Heparin SQ Code Status DNR/DNI Disposition PT/OT prior to discharge Admission and Anticipated Discharge Date Admission Date: June 29, 2022 Subjective Patient is seen and examined bedside States feeling much better today Cough, generalized weakness improved No diarrhea this morning Saturating well on room air Denies any chest pain, dyspnea, dizziness, nausea, vomiting No other complaints Review of Systems Review of Systems: All systems reviewed & are unremarkable except as noted in Subjective Physical Exam Physical Exam: Physical Exam: Vitals signs as noted above General Appearance:Moderately built and nourished, no apparent distress Head: normocephalic, Atraumatic Eyes: normal inspection, EOMI Neck: supple, Trachea midline Respiratory/Chest: Decreased breath sounds, CTA, +Pacemaker, No accessory muscle use Cardiovascular: S1, S2, No murmur Abdomen/GI:Soft, Non tender, Bowel sounds present Extremities/Musculoskeletal:normal inspection, Trace edema Neurologic/Psych:AAOX3, grossly no focal neurological deficits Skin: normal color, warm Results & Data Results & Data ([facility]) Vital Signs (Past 12 Hours) Vital Signs Temp Pulse Pulse Resp BP Pulse Ox Pulse Ox 06/29/22 08:06 06/29/22 11:49 60 06/29/22 11:46 36.7 C 59 L 18 115/73 94 06/29/22 08:10 93 06/29/22 08:09 36.4 C L 61 18 111/62 93 06/29/22 06:00 60 06/29/22 05:05 63 06/29/22 04:50 06/29/22 04:50 36.7 C 66 18 110/70 98 06/29/22 04:00 67 15 103/57 L 94 06/29/22 03:39 65 06/29/22 03:00 65 15 100/52 L 92 06/29/22 02:30 64 10 L 95 O2 Del Method O2 Del Method O2 Flow Rate 06/29/22 08:06 Room Air 06/29/22 11:49 06/29/22 11:46 Room Air 06/29/22 08:10 Room Air 0 06/29/22 08:09 Room Air 06/29/22 06:00 06/29/22 05:05 06/29/22 04:50 Room Air 06/29/22 04:50 Room Air 06/29/22 04:00 Room Air 06/29/22 03:39 06/29/22 03:00 Room Air 06/29/22 02:30 Room Air Laboratory Results Short CBC 06/28/22 06/29/22 Range/Units 19:56 07:15 WBC 5.96 4.21 L (4.8-10.8) K/ul Hgb 13.7 L 12.9 L (14.0-18.0) g/dl Hct 40.8 L 38.7 L (42.0-52.0) % Plt Count 170 162 (130-400) K/uL BMP 06/28/22 06/29/22 19:56 07:15 Sodium 139 139 Potassium 3.4 L 3.8 Chloride 102 105 Carbon Dioxide 24 22 BUN 46 H 38 H Creatinine 1.98 H 1.82 H Glucose 151 H 182 H Calcium 8.2 L 7.9 L Liver Function 06/28/22 Range/Units 19:56 Total Bilirubin 1.0 (0.2-1.0) mg/dl AST 20 (13-39) U/L ALT 11 (7-52) U/L Alkaline Phosphatase 61 (34-104) U/L Albumin 3.7 (3.4-5.0) gm/dl
[2022-06-29] MEDS: VALSARTAN/SACUBITRIL 26/24MG TAB PO SCH (21:10)
[2022-06-29] MEDS: ATORVASTATIN 40 MG TAB PO SCH (21:11)
[2022-06-29] MEDS: LANTUS PER UNIT CHARGE SQ SCH (21:37)
[2022-06-29 22:07] LABS: Adenovirus F 40/41 PCR Not Detected (NotDetected); Astrovirus PCR Not Detected (NotDetected); Campylobacter PCR Not Detected (NotDetected); Cryptosporidium PCR Not Detected (NotDetected); Cyclospora cayetanensis PCR Not Detected (NotDetected); Entamoeba histolytica PCR Not Detected (NotDetected); Enteroaggregative E.coli(EAEC) Not Detected (NotDetected); Enteropathogenic E.coli (EPEC) Not Detected (NotDetected); Enterotoxigenic E.coli (ETEC) Not Detected (NotDetected); Giardia lamblia PCR Not Detected (NotDetected); Norovirus GI/GII PCR Not Detected (NotDetected); Plesiomonas shigelloides PCR Not Detected (NotDetected); Rotavirus A PCR Not Detected (NotDetected); Salmonella PCR Not Detected (NotDetected); Sapovirus PCR Not Detected (NotDetected); Shiga-like Toxin E.coli (STEC) Not Detected (NotDetected); Shigella/Enteroinvasive E.coli Not Detected (NotDetected); Vibrio cholerae PCR Not Detected (NotDetected); Vibrio species PCR Not Detected (NotDetected); Yersinia enterocolitica PCR Not Detected (NotDetected)
--- NOTE | 2022-06-29 22:09 | Electrocardiogram Report ---
Test Reason : Blood Pressure : / mmHG Vent. Rate : 062 BPM Atrial Rate : 062 BPM P-R Int : 222 ms QRS Dur : 066 ms QT Int : 434 ms P-R-T Axes : 083 -51 048 degrees QTc Int : 440 ms Poor data quality, interpretation may be adversely affected Atrial-paced rhythm with prolonged AV conduction with occasional Premature ventricular complexes Left axis deviation Low voltage QRS Inferior infarct (cited on or before 22-JUN-2008) Anterior infarct (cited on or before 22-JUN-2008) Abnormal ECG When compared with ECG of 27-MAY-2019 10:28, No significant change Confirmed by Edgard Henning ([id number]) on 06/29/2022 10:09:05 PM Referred By: REFERRED SELF Confirmed By:Edgard Henning
[2022-06-30] MEDS: HEPARIN SOD 5,000 UNIT/0.5 ML VIAL SQ SCH ×4 (05:56→22:56)
[2022-06-30 07:22] LABS: Anion Gap 7 (3-11); BUN Creatinine Ratio 18.2 (10-20); Blood Urea Nitrogen 30 mg/dl (6-23); C Reactive Protein < 0.50 mg/dl (0-0.5); Calcium 8.1 mg/dl (8.5-10.1); Carbon Dioxide 26 mmol/L (21-32); Chloride 107 mmol/L (98-107); Creatinine Clr Calc Pharmacy 36.3 ml/min; Est GFR (African American) 44.5 ml/min; Est GFR (Non-African American) 38.4 ml/min; Glucose 120 mg/dl (70-99(Fasting)); Potassium 3.3 mmol/L (3.5-5.1); Sodium 140 mmol/L (136-145)
[2022-06-30] MEDS ORDERED: POTASSIUM CHLORIDE CRTAB 20 MEQ TABCR PO ONE (08:45)
[2022-06-30] MEDS ORDERED: dexAMETHasone 4 MG in SYRINGE 0 ML IV SCH (09:00)
[2022-06-30] MEDS: BENZONATATE 100 MG CAPSULE PO PRN (09:19)
[2022-06-30] MEDS: dexAMETHasone 4 MG in SYRINGE 0 ML IV SCH (09:20)
[2022-06-30] MEDS: INSULIN ASPART PER UNIT SC SCH ×4 (09:20→20:30)
[2022-06-30] MEDS: ASPIRIN 81 MG CHEW PO SCH (09:20)
[2022-06-30] MEDS: PANTOprazole 40 MG TAB PO SCH ×2 (09:21→20:48)
[2022-06-30] MEDS: carvediloL 3.125 MG TAB PO SCH ×2 (09:21→20:47)
[2022-06-30] MEDS: guaiFENesin 200 MG TAB PO SCH ×2 (09:21→20:48)
[2022-06-30] MEDS: VALSARTAN/SACUBITRIL 26/24MG TAB PO SCH ×2 (09:21→20:48)
[2022-06-30] MEDS: FUROSEMIDE 40 MG TAB PO SCH (10:00)
[2022-06-30] MEDS: SPIRONOLACTONE 25 MG TAB PO SCH (10:00)
--- NOTE | 2022-06-30 15:04 | Hospitalist Progress Note ---
Date of Service June 30, 2022 Assessment & Plan (1) COVID-19: Plan: Severe COVID-19 illness Generalized weakness secondary to above Troponin elevation secondary to illness/CKD -- COVID screen positive --Influenza, RSV screen negative --CXR:No acute cardiopulmonary findings. No change in appearance of the chest. Check CRP, procalcitonin Started on Decadron Saturating well on room air Will discontinue steroids as able Supportive care PT/OT Plan to discharge in next 24-48 hours Diarrhea Likely secondary to above Stool studies if any recurrence Chronic systolic heart failure H/O Ischemic cardiomyopathy EF 20 to 25%, TTE 2019 S/P ICD Continue home medications Resume home diuretics today PAF/PSVT Not on anticoagulation Coreg dose decreased to 3.125 mg twice daily due to low BP Monitor and adjust Coreg dose as needed CAD S/P stent Continue aspirin, Lipitor, carvedilol Hyperlipidemia on statin DM II on Trulicity, HbA1C 8.18 Mar 2022 Continue Insulin per protocol Monitor BGs 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 Monitor renal function Avoid nephrotoxic agents as able DVT Px: Heparin SQ Code Status DNR/DNI Disposition PT/OT prior to discharge Admission and Anticipated Discharge Date Admission Date: June 29, 2022 Subjective Patient is seen and examined bedside Doing well No new complaints Appetite, weakness much improved Minimal Cough Saturating well on room air Denies any chest pain, dyspnea, dizziness, nausea, vomiting, Abd pain Review of Systems Review of Systems: All systems reviewed & are unremarkable except as noted in Subjective Physical Exam Physical Exam: Physical Exam: Vitals signs as noted above General Appearance:Moderately built and nourished, no apparent distress Head: normocephalic, Atraumatic Eyes: normal inspection, EOMI Neck: supple, Trachea midline Respiratory/Chest: Decreased breath sounds, CTA, +Pacemaker, No accessory muscle use Cardiovascular: S1, S2, No murmur Abdomen/GI:Soft, Non tender, Bowel sounds present Extremities/Musculoskeletal:normal inspection, Trace edema Neurologic/Psych:AAOX3, grossly no focal neurological deficits Skin: normal color, warm Results & Data Results & Data ([facility]) Vital Signs (Past 12 Hours) Vital Signs Temp Pulse Pulse Resp BP Pulse Ox Pulse Ox 06/30/22 11:26 06/30/22 11:22 36.7 C 60 15 110/65 93 06/30/22 08:00 95 06/30/22 07:52 36.6 C 62 16 138/81 90 06/30/22 07:16 60 06/30/22 04:00 36.5 C 62 18 133/68 94 O2 Del Method O2 Del Method 06/30/22 11:26 Room Air 06/30/22 11:22 Room Air 06/30/22 08:00 Room Air 06/30/22 07:52 Room Air 06/30/22 07:16 06/30/22 04:00 Room Air Laboratory Results [facility] 06/30/22 06:42 Sodium 140 Potassium 3.3 L Chloride 107 Carbon Dioxide 26 BUN 30 H Creatinine 1.65 H Glucose 120 H Calcium 8.1 L
[2022-06-30] MEDS: LANTUS PER UNIT CHARGE SQ SCH (20:30)
[2022-06-30] MEDS: ATORVASTATIN 40 MG TAB PO SCH (20:47)
[2022-07-01] MEDS: ASPIRIN 81 MG CHEW PO SCH (08:20)
[2022-07-01] MEDS: dexAMETHasone 4 MG in SYRINGE 0 ML IV SCH (08:20)
[2022-07-01] MEDS: carvediloL 3.125 MG TAB PO SCH ×2 (08:21→21:30)
[2022-07-01] MEDS: SPIRONOLACTONE 25 MG TAB PO SCH (08:21)
[2022-07-01] MEDS: VALSARTAN/SACUBITRIL 26/24MG TAB PO SCH ×2 (08:22→21:27)
[2022-07-01] MEDS: guaiFENesin 200 MG TAB PO SCH ×2 (08:22→21:28)
[2022-07-01] MEDS: PANTOprazole 40 MG TAB PO SCH ×2 (08:22→21:28)
[2022-07-01] MEDS: FUROSEMIDE 40 MG TAB PO SCH (08:22)
[2022-07-01] MEDS: INSULIN ASPART PER UNIT SC SCH ×4 (08:30→21:50)
[2022-07-01 08:49] LABS: Hematocrit (blood only) 43.9 % (42.0-52.0); Hemoglobin 14.9 g/dl (14.0-18.0); Mean Corpuscular Hgb Conc 33.9 g/dL (32.0-36.0); Mean Corpuscular Volume 88.3 fL (80.0-100.0); Mean Platelet Volume 11.8 fL (9.4-12.4); Platelet Count 228 K/uL (130-400); RDW Coefficient of Variation 12.9 % (11.5-14.5); RDW Standard Deviation 41.5 fL (36.4-46.3); Red Blood Count 4.97 M/uL (4.70-6.10); White Blood Count 8.11 K/ul (4.8-10.8)
[2022-07-01 08:56] LABS: BUN Creatinine Ratio 15.6 (10-20); Calcium 8.5 mg/dl (8.5-10.1); Creatinine Clr Calc Pharmacy 34.6 ml/min; Est GFR (Non-African American) 36.2 ml/min; Magnesium 1.8 mg/dl (1.7-2.4); Potassium 3.5 mmol/L (3.5-5.1)
[2022-07-01] MEDS: HEPARIN SOD 5,000 UNIT/0.5 ML VIAL SQ SCH ×2 (10:57→21:30)
--- NOTE | 2022-07-01 15:26 | Hospitalist Progress Note ---
Date of Service July 01, 2022 Assessment & Plan (1) COVID-19: Plan: Severe COVID-19 illness Generalized weakness secondary to above Troponin elevation secondary to illness/CKD -- COVID screen positive --Influenza, RSV screen negative --CXR:No acute cardiopulmonary findings. No change in appearance of the chest. Check CRP, procalcitonin Started on Decadron Saturating well on room air, will discontinue steroids as able Supportive care PT/OT Plan to discharge home tomorrow Diarrhea Likely secondary to above Stool studies if any recurrence resolved Chronic systolic heart failure H/O Ischemic cardiomyopathy EF 20 to 25%, TTE 2019 S/P ICD Continue home medications Resumed home diuretics today PAF/PSVT Not on anticoagulation Coreg dose decreased to 3.125 mg twice daily due to low BP Monitor and adjust Coreg dose as needed CAD S/P stent Continue aspirin, Lipitor, carvedilol Hyperlipidemia on statin DM II on Trulicity, HbA1C 8.18 Mar 2022 Continue Insulin per protocol Monitor BGs CKD III-IV Creatinine 1.7 Monitor renal function Avoid nephrotoxic agents as able Stable DVT Px: Heparin SQ Code Status DNR/DNI Disposition PT/OT prior to discharge Admission and Anticipated Discharge Date Admission Date: June 29, 2022 Subjective Patient is seen and examined at bedside He was coming out from the bathroom Sitting in bed with no acute distress He said that he feels fine Patient share the same hospital room with his . they take care of each other at home will be discharge home tomorrow Denies any chest pain, dyspnea, dizziness, nausea, vomiting, Abd pain Review of Systems Review of Systems: All systems reviewed & are unremarkable except as noted in Subjective Physical Exam Physical Exam: General- No acute distress Head- atraumatic Eyes- PERRL, EOMI, ENT- oropharynx clear Neck- supple, no JVD Lungs- clear to auscultation Heart- regular rhythm; no murmur Abdomen- normal bowel sounds, soft, nontender Extremities- no calf tenderness Neuro- alert, oriented x 3; PERRL, EOMI; no facial palsy; no dysarthria Skin- warm & dry Results & Data Results & Data ([facility]) Vital Signs (Past 12 Hours) Vital Signs Temp Pulse Pulse Pulse Resp BP Pulse Ox 07/01/22 15:14 36.7 C 60 20 110/74 94 07/01/22 10:48 36.5 C 65 18 104/64 92 07/01/22 09:36 07/01/22 08:15 60 07/01/22 07:00 60 07/01/22 08:00 07/01/22 08:10 07/01/22 07:28 36.8 C 57 L 20 111/68 93 07/01/22 05:55 61 Pulse Ox O2 Del Method O2 Del Method 07/01/22 15:14 Room Air 07/01/22 10:48 Room Air 07/01/22 09:36 92 Room Air 07/01/22 08:15 07/01/22 07:00 07/01/22 08:00 93 Room Air 07/01/22 08:10 Room Air 07/01/22 07:28 Room Air 07/01/22 05:55
[2022-07-01] MEDS: BENZONATATE 100 MG CAPSULE PO PRN (21:27)
[2022-07-01] MEDS: ATORVASTATIN 40 MG TAB PO SCH (21:29)
[2022-07-01] MEDS: LANTUS PER UNIT CHARGE SQ SCH (21:50)
[2022-07-02] MEDS: HEPARIN SOD 5,000 UNIT/0.5 ML VIAL SQ SCH ×2 (04:55→12:48)
[2022-07-02 07:35] LABS: Hematocrit (blood only) 40.5 % (42.0-52.0); Hemoglobin 13.7 g/dl (14.0-18.0); Mean Corpuscular Hemoglobin 29.9 pg (25.0-34.0); Mean Corpuscular Hgb Conc 33.8 g/dL (32.0-36.0); Mean Corpuscular Volume 88.4 fL (80.0-100.0); Mean Platelet Volume 11.9 fL (9.4-12.4); Platelet Count 183 K/uL (130-400); RDW Coefficient of Variation 13.1 % (11.5-14.5); RDW Standard Deviation 42.4 fL (36.4-46.3); Red Blood Count 4.58 M/uL (4.70-6.10)
[2022-07-02] MEDS: INSULIN ASPART PER UNIT SC SCH ×2 (08:14→12:26)
[2022-07-02] MEDS: carvediloL 3.125 MG TAB PO SCH (08:42)
[2022-07-02] MEDS: guaiFENesin 200 MG TAB PO SCH (08:42)
[2022-07-02] MEDS: SPIRONOLACTONE 25 MG TAB PO SCH (08:42)
[2022-07-02] MEDS: FUROSEMIDE 40 MG TAB PO SCH (08:43)
[2022-07-02] MEDS: dexAMETHasone 4 MG in SYRINGE 0 ML IV SCH (08:43)
[2022-07-02] MEDS: ASPIRIN 81 MG CHEW PO SCH (08:43)
[2022-07-02] MEDS: VALSARTAN/SACUBITRIL 26/24MG TAB PO SCH (08:43)
[2022-07-02] MEDS: PANTOprazole 40 MG TAB PO SCH (08:43)
--- NOTE | 2022-07-02 12:53 | Discharge Summary ---
Date of Service July 02, 2022 Admission HPI Per Admitting Provider History obtained from patient, family, and records. Medical history significant for chronic systolic heart failure secondary to ischemic cardiomyopathy (EF 20 to 25%, TTE 2019) status post ICD, PAF/PSVT, CAD status post stent, hypertension, hyperlipidemia, DM 2 on Trulicity, CRI (baseline creatinine 2 ), past chronic anemia (baseline hemoglobin of 13 ), past tobacco abuse. Last confinement 2008 for acute inferior VT status post bare-metal stent placement. Patient has been sick for about a week. Cough productive of clear sputum, congestion, worsening shortness of breath on exertion. Feeling weak and rundown, poor appetite. Patient and tested positive for COVID-19. Patient has received COVID-19 vaccination. Patient called PCPs office. EMS sent to patient's home. At the ER, lowest O2 sats of 90 on room air. Medical History as above Surgical History : Cholecystectomy, umbilical hernia repair, ICD Family History : Heart disease Personal/Social history : Past tobacco abuse, occasional EtOH intake, retired government public information officer Admission Exam Per Admitting Provider GENERAL: Comfortable, pleasant, incessant coughing, no respiratory distress SKIN: Pallor , warm HEENT: Pale palpebral conjunctivae, no ptosis, dry buccal mucosa NECK : Supple, no tenderness CHEST : Decreased breath sounds, no tenderness HEART : RRR, diminished S1-S2, no obvious murmurs ABDOMEN: Some distention, nontender EXTREMITIES : Minimal LE swelling, no LE tenderness, no other conspicuous deformities noted NEUROLOGIC : Coherent, no facial asymmetry, no other gross focality Principal Diagnosis COVID-19 Diarrhea Chronic systolic heart failure Paroxysmal atrial fibrillation Coronary artery disease Hyperlipidemia Diabetes Chronic kiney disease Discharge Exam General- No acute distress Head- atraumatic Eyes- PERRL, EOMI, ENT- oropharynx clear Neck- supple, no JVD Lungs- clear to auscultation Heart- regular rhythm; no murmur Abdomen- normal bowel sounds, soft, nontender Extremities- no calf tenderness Neuro- alert, oriented x 3; PERRL, EOMI; no facial palsy; no dysarthria Skin- warm & dry Discharge Data Allergies Allergy/AdvReac Type Severity Reaction Status Date / Time lisinopril Allergy Intermediate HIVES Verified 03/14/22 10:44 Consultations 06/28/22 21:36 ED Decision to Admit Stat Ordered Studies Laboratory Results WBC 8.30 K/ul (4.8-10.8) 07/02/22 07:10 RBC 4.58 M/uL (4.70-6.10) L 07/02/22 07:10 Hgb 13.7 g/dl (14.0-18.0) L 07/02/22 07:10 Hct 40.5 % (42.0-52.0) L 07/02/22 07:10 MCV 88.4 fL (80.0-100.0) 07/02/22 07:10 MCH 29.9 pg (25.0-34.0) 07/02/22 07:10 MCHC 33.8 g/dL (32.0-36.0) 07/02/22 07:10 RDW Std Deviation 42.4 fL (36.4-46.3) 07/02/22 07:10 RDW Coeff of Cristela 13.1 % (11.5-14.5) 07/02/22 07:10 Plt Count 183 K/uL (130-400) 07/02/22 07:10 MPV 11.9 fL (9.4-12.4) 07/02/22 07:10 Immature Gran % (Auto) 1.0 % 06/29/22 07:15 Neut % (Auto) 80.1 % 06/29/22 07:15 Lymph % (Auto) 15.9 % 06/29/22 07:15 Camp % (Auto) 2.6 % 06/29/22 07:15 Eos % (Auto) 0.2 % 06/29/22 07:15 Baso % (Auto) 0.2 % 06/29/22 07:15 Neut # (Auto) 3.37 K/uL (1.40-6.50) 06/29/22 07:15 Lymph # (Auto) 0.67 K/uL (1.2-3.4) L 06/29/22 07:15 Camp # (Auto) 0.11 K/uL (0.11-0.59) 06/29/22 07:15 Eos # (Auto) 0.01 K/uL (0-0.50) 06/29/22 07:15 Baso # (Auto) 0.01 K/uL (0-0.2) 06/29/22 07:15 Immature Gran # (Auto) 0.04 K/uL (0.01-0.20) 06/29/22 07:15 APTT 29.0 Seconds (21.0-31.0) 06/28/22 19:55 PTT Ratio 1.1 06/28/22 19:55 Sodium 140 mmol/L (136-145) 07/01/22 07:43 Potassium 3.5 mmol/L (3.5-5.1) 07/01/22 07:43 Chloride 106 mmol/L (98-107) 07/01/22 07:43 Carbon Dioxide 26 mmol/L (21-32) 07/01/22 07:43 Anion Gap 8 (3-11) 07/01/22 07:43 BUN 27 mg/dl (6-23) H 07/01/22 07:43 Creatinine 1.73 mg/dl (0.6-1.4) H 07/01/22 07:43 Est Cr Clr Drug Dosing 34.6 ml/min 07/01/22 07:43 Est GFR ( Amer) 42.0 ml/min 07/01/22 07:43 Est GFR (Non-Af Amer) 36.2 ml/min 07/01/22 07:43 BUN/Creatinine Ratio 15.6 (10-20) 07/01/22 07:43 Glucose 111 mg/dl (70-99(Fasting)) H 07/01/22 07:43 POC Glucose 247 mg/dl (70-99) H 07/02/22 11:52 Estimat Average Glucose 209 mg/dl 06/29/22 07:15 Hemoglobin A1c 8.9 % (4.5-5.6) H 06/29/22 07:15 Lactate 1.4 mmol/L (0.4-2.0) 06/29/22 01:07 Calcium 8.5 mg/dl (8.5-10.1) 07/01/22 07:43 Magnesium 1.8 mg/dl (1.7-2.4) 07/01/22 07:43 Total Bilirubin 1.0 mg/dl (0.2-1.0) 06/28/22 19:56 AST 20 U/L (13-39) 06/28/22 19:56 ALT 11 U/L (7-52) 06/28/22 19:56 Alkaline Phosphatase 61 U/L (34-104) 06/28/22 19:56 Troponin I High Sens 42.1 pg/ml (0-20) H 06/29/22 07:15 C-Reactive Protein < 0.50 mg/dl (0-0.5) 06/30/22 06:42 Total Protein 6.7 gm/dl (6.0-8.3) 06/28/22 19:56 Albumin 3.7 gm/dl (3.4-5.0) 06/28/22 19:56 Globulin 3.0 gm/dl (2.5-4.0) 06/28/22 19:56 Albumin/Globulin Ratio 1.2 (0.9-2) 06/28/22 19:56 Lipase 26 U/L (11-82) 06/28/22 19:56 Procalcitonin < 0.05 ng/ml (0-0.5) 06/30/22 06:42 Stl C. cayetanensis PCR Not Detected (NotDetected) 06/29/22 17:57 Stool Rotavirus A PCR Not Detected (NotDetected) 06/29/22 17:57 Stl Adenov F 40/41 PCR Not Detected (NotDetected) 06/29/22 17:57 Stool Astrovirus (PCR) Not Detected (NotDetected) 06/29/22 17:57 Stool Campylobacter PCR Not Detected (NotDetected) 06/29/22 17:57 Stl C. diff Tox B Gene Negative Cdiff Gene (Neg) 06/29/22 17:57 Stool Cryptosporidium PCR Not Detected (NotDetected) 06/29/22 17:57 Stl E.coli Shiga Tox PCR Not Detected (NotDetected) 06/29/22 17:57 Stl Enterotoxigenic E PCR Not Detected (NotDetected) 06/29/22 17:57 Stool EPEC (PCR) Not Detected (NotDetected) 06/29/22 17:57 Stool EAEC (PCR) Not Detected (NotDetected) 06/29/22 17:57 Stl E. histolytica PCR Not Detected (NotDetected) 06/29/22 17:57 Stool Giardia Lamblia PCR Not Detected (NotDetected) 06/29/22 17:57 Stool Salmonella PCR Not Detected (NotDetected) 06/29/22 17:57 Stool Sapovirus (PCR) Not Detected (NotDetected) 06/29/22 17:57 Stl P. shigelloides PCR Not Detected (NotDetected) 06/29/22 17:57 Stl Shigella/EIEC PCR Not Detected (NotDetected) 06/29/22 17:57 St Y.enterocolitica PCR Not Detected (NotDetected) 06/29/22 17:57 Stool Vibrio (PCR) Not Detected (NotDetected) 06/29/22 17:57 Stl Vibrio cholerae PCR Not Detected (NotDetected) 06/29/22 17:57 Stl Norovirus GI/GII PCR Not Detected (NotDetected) 06/29/22 17:57 SARS-CoV-2 (PCR) POSITIVE (Negative) A* 06/28/22 19:20 Influenza Type A (PCR) Negative (Neg) 06/28/22 19:20 Influenza Type B (PCR) Negative (Neg) 06/28/22 19:20 RSV (RT-PCR) Negative (Neg) 06/28/22 19:20 Impressions Chest X-Ray 06/28/22 18:55 XR chest 1V portable CLINICAL HISTORY: Chest pain, nonspecific COMPARISON STUDY: Chest radiograph May 27, 2019. FINDINGS: Left subclavian pacer/AICD is in place. Cardiomegaly is unchanged. There is no evidence for pulmonary edema. There is no pneumothorax or pleural effusion. No consolidation is identified. No change in appearance of the chest. IMPRESSION: No acute cardiopulmonary findings. No change in appearance of the chest. ACT 112: Negative or not required by law. Electronically signed by: Torin Rene M.D. 06/28/2022 7:32 PM Hospital Course (1) COVID-19: Severe COVID-19 illness Generalized weakness secondary to above Troponin elevation secondary to illness/CKD -- COVID screen positive --Influenza, RSV screen negative --CXR:No acute cardiopulmonary findings. No change in appearance of the chest. Check CRP, procalcitonin Started on Decadron Saturating well on room air, will discontinue steroids as able Supportive care PT/OT Clinically stable Will discharge home today Diarrhea Likely secondary to above Stool studies if any recurrence resolved Chronic systolic heart failure H/O Ischemic cardiomyopathy EF 20 to 25%, TTE 2019 S/P ICD Continue home medications Continue home diuretics om discharge PAF/PSVT Not on anticoagulation Coreg dose decreased to 3.125 mg twice daily due to low BP Monitor and adjust Coreg dose as needed CAD S/P stent Continue aspirin, Lipitor, carvedilol Hyperlipidemia on statin DM II on Trulicity, HbA1C 8.9 on 06/29/22 Continue Insulin per protocol Monitor BG and bring BG log at your next appointment with your provider CKD III-IV Creatinine 1.7 Monitor renal function Avoid nephrotoxic agents as able Stable DVT Px: Heparin SQ Code Status DNR/DNI Disposition PT/OT prior to discharge Total Time Total Time Spent Total Time Spent (In Minutes): 35 minutes Discharge Plan Discharge Items Patient Disposition: Home - Self-Care Reason For Visit: TREV YUAN Discharge Diagnosis: COVID-19 Diarrhea Chronic systolic heart failure Paroxysmal atrial fibrillation Coronary artery disease Hyperlipidemia Diabetes Chronic kiney disease Activity: Resume your previous activity Non-emergency contact: Primary Care Provider Call non-emergency contact if: you have any medication questions Follow-up/Referrals: Jose Alfredo Ames MD [Primary Care Provider] - (Date & Time 07/07/2022 9:40 AM Provider Jose Alfredo Ames MD [facility] ) Diet: Carb Consistent or DM2 Addtl Attending Provider Instructions: Follow up with your primary care provider 07/07/2022 @ 9:40 AM Jose Alfredo Ames MD [facility] Continue monitor your blood sugar and bring your blood sugar log at your next appointment with your provider Continue to wear mask and practice social distance for another week Seek medical attention if you develop any shortness of breath Carvedilol decreased to 3.125mg twice a day due to low blood pressure. Continue monitor your blood pressure Home Isolation COVID-19 Instructions The following information about Home Isolation is from the CDC Website: https://www.cdc.gov/coronavirus/2019-ncov/hcp/dferlbii-zjkjqcy-qnujfz.html Stay home except to get medical care People who are mildly ill with COVID-19 are able to isolate at home during their illness. You should restrict activities outside your home, except for getting medical care. Do not go to work, school, or public areas. Avoid using public transportation, ride-sharing, or taxis. Separate yourself from other people and animals in your home People: As much as possible, you should stay in a specific room and away from other people in your home. Also, you should use a separate bathroom, if available. Animals: You should restrict contact with pets and other animals while you are sick with COVID-19, just like you would around other people. Although there have not been reports of pets or other animals becoming sick with COVID-19, it is still recommended that people sick with COVID-19 limit contact with animals until more information is known about the virus. When possible, have another member of your household care for your animals while you are sick. If you are sick with COVID-19, avoid contact with your pet, including petting, snuggling, being kissed or licked, and sharing food. If you must care for your pet or be around animals while you are sick, wash your hands before and after you interact with pets and wear a face mask. Call ahead before visiting your doctor If you have a medical appointment, call the healthcare provider and tell them that you have or may have COVID-19. This will help the healthcare providers office take steps to keep other people from getting infected or exposed. Wear a face mask You should wear a face mask when you are around other people (e.g., sharing a room or vehicle) or pets and before you enter a healthcare providers office. If you are not able to wear a face mask (for example, because it causes trouble breathing), then people who live with you should not stay in the same room with you, or they should wear a face mask if they enter your room. Cover your coughs and sneezes Cover your mouth and nose with a tissue when you cough or sneeze. Throw used tissues in a lined trash can. Immediately wash your hands with soap and water for at least 20 seconds or, if soap and water are not available, clean your hands with an alcohol-based hand car spotter that contains at least 60% alcohol. Clean your hands often Wash your hands often with soap and water for at least 20 seconds, especially after blowing your nose, coughing, or sneezing; going to the bathroom; and before eating or preparing food. If soap and water are not readily available, use an alcohol-based hand car spotter with at least 60% alcohol, covering all surfaces of your hands and rubbing them together until they feel dry. Soap and water are the best option if hands are visibly dirty. Avoid touching your eyes, nose, and mouth with unwashed hands. Avoid sharing personal household items You should not share dishes, drinking glasses, cups, eating utensils, towels, or bedding with other people or pets in your home. After using these items, they should be washed thoroughly with soap and water. Clean all high-touch surfaces everyday High touch surfaces include counters, tabletops, doorknobs, bathroom fixtures, toilets, phones, keyboards, tablets, and bedside tables. Also, clean any surfaces that may have blood, stool, or body fluids on them. Use a household cleaning spray or wipe, according to the label instructions. Labels contain instructions for safe and effective use of the cleaning product including precautions you should take when applying the product, such as wearing gloves and making sure you have good ventilation during use of the product. Monitor your symptoms Seek prompt medical attention if your illness is worsening (e.g., difficulty breathing).Beforeseeking care, call your healthcare provider and tell them that you have, or are being evaluated for, COVID-19. Put on a face mask before you enter the facility. These steps will help the healthcare providers office to keep other people in the office or waiting room from getting infected or exposed. Ask your healthcare provider to call the local or state health department. Persons who are placed under active monitoring or facilitated self- monitoring should follow instructions provided by their local health department or occupational health professionals, as appropriate. When working with your local health department check their available hours. If you have a medical emergency and need to call 911, notify the dispatch personnel that you have, or are being evaluated for COVID-19. If possible, put on a face mask before emergency medical services arrive. Discontinuing home isolation Patients with confirmed COVID-19 should remain under home isolation precautions until the risk of secondary transmission to others is thought to be low. The decision to discontinue home isolation precautions should be made on a [id number] basis, in consultation with healthcare providers and state and local health departments. Coronavirus disease 2019 (COVID-19) is a virus that causes a respiratory illness. It is caused by a coronavirus called 2019 novel coronavirus (2019- nCoV). There are many types of coronavirus. Coronaviruses are a very common cause of bronchitis. They may sometimes cause lung infection(pneumonia). Symptoms can range from mild to severe respiratory illness. These viruses are also foundin some animals. COVID-19 was first found in people in [facility], in late 2019. In 2020, several cases of COVID-19 have been confirmed in the [place] Public health officials are working to find the source. How the virus spreads is not yet fully known. It may be spread through droplets of fluid that a person coughs or sneezes into the air. It may be spread if you touch a surface with virus on it, such as a handle or object, and then touch your mouth. What are the symptoms of COVID-19? Some people have no symptoms or mild symptoms. Symptoms may appear 2 to 14 days after contact with the virus. Symptoms can include: Fever Coughing Trouble breathing What are possible complications from COVID-19? In many cases, this virus can cause infection (pneumonia) in both lungs. In some cases, this can cause . How is COVID-19 diagnosed? Your healthcare provider will ask about your symptoms. He or she will also ask about your recent travel and contact with sick people. Testing for the virus is only done through the CDC. If yourhealthcare provider thinks you may have COVID- 19, he or she will work with your local health department and the CDC on testing. Follow all instructions from your healthcare provider. COVID-19 is diagnosed by: Nasal and throat swab. A cotton-tipped swab is wiped inside your nose or throat. This is done to check for viruses in your nasal mucus. Sputum culture. A small sample of mucus coughed from your lungs (sputum) is collected if you have a cough. It is checked for the virus. How is COVID-19 treated? There is currently no medicine to treat the virus. Treatment is done to help your body while it fights the virus. This is known as supportive care. Supportive care may include: Pain medicine. These include acetaminophen and ibuprofen. They are used to help ease pain and reduce fever. Bed rest. This helps your body fight the illness. For severe illness, you may need to stay in the hospital. Care during severe illness may include: IV (intravenous) fluids.These are given through a vein to help keep your body hydrated. Oxygen. Supplemental oxygen or ventilation with a breathing machine (ventilator) may be given. This is done to keep enough oxygen in your body. Are you at risk for COVID-19? If youve been to a place where people have been sick with this virus, you are at risk for infection. You are at risk if you: Recently traveled to an affected area Had contact with a sick person who recently traveled to this area Had contact with a person who was diagnosed with COVID-19 How can COVID-19 be prevented? There is no vaccine yet. The best prevention is to not have contact with the virus. The CDC advises that people should not travel to areas where there are COVID-19 outbreaks right now for any reason that is not urgent. To help prevent spreading the infection, wash your hands often, or use an alcohol-basedhand car spotter. If you are in an area with COVID-19: Wash your hands often. Or use an alcohol-based hand car spotter often. Only touch your eyes, nose, or mouth with clean hands. Dont have contact with people who are sick. Follow local instructions about being in public. For example, you may be told to not use public transport for a period of time. Stay away from markets that have live or animals. Wash your hands after touching any animals. Don't touch animals that may be sick. Dont share eating or drinking tools with sick people. Dont kiss someone who is sick. Clean surfaces often with disinfectant. If you were in an area with COVID-19 in the last 14 days: Call your healthcare provider. He or she can talk with local health staff to see what action may be needed. Follow all instructions from your provider. Take your temperature every morning and evening for at least 14 days. This is to check for fever. Keep a record of the readings. Keep watch for symptoms of the virus. Tell your provider right away if you have symptoms. If you were in an area with COVID-19 and have a fever or other symptoms: Dont panic. Keep in mind that other illnesses can cause similar symptoms. Stay away from work, school, and public places. Limit physical contact with family members. Don't kiss anyone or share eating or drinking utensils. Clean surfaces you touch with disinfectant. This is to help prevent the virus from spreading. Call your healthcare provider. Explain that you have been exposed to COVID-19 and have symptoms. Do this before going to any hospital. Wait for instructions. Keep in mind that healthcare staff may wear protective equipment such as masks, gowns, gloves, and eye protection. You may be put in a separate room. This is to prevent the possible virus from spreading. Tell the healthcare staff about recent travel. This includes local travel on public transport. Staff may need to find other people you have been in contact with. Follow all instructions the healthcare staff give you. If you have been diagnosed with COVID-19 Follow all instructions from your healthcare provider. Dont leave your home, except to get medical care. Call your healthcare providers office before going. They can prepare and give you instructions. This will help prevent the virus from spreading. Dont go to work, school, or public areas. Dont use public transport or taxis. Stay away from other people in your home. Have them wear face masks around you. Dont share household items or food. Wear a face mask if you can. This includes at home or in a medical facility. Cover your face with a tissue when you cough or sneeze. Throw the tissue away. Wash your hands. Wash your hands often. Caregivers should: Follow all instructions from healthcare staff. Wear a face mask and protective clothing as advised. Wash hands often. Keep track of the sick persons symptoms. Clean surfaces, fabrics, and laundry thoroughly. Keep other people away from the sick person. When to call your healthcare provider Call your healthcare provider: If youve recently traveled and have symptoms If you have been diagnosed with COVID-19 and your symptoms are worse To learn more To find out more about COVID-19, visit the CDC website at www.cdc.gov/coronavirus/2019-ncov/index.html. [employer]. [address] [place] [address], [place] [address]. All rights reserved. This information is not intended as a substitute for professional medical care. Always follow your healthcare professional's instructions. This information has been adapted from [employer] Pending Studies at Discharge: No Stand-Alone Forms: My [employer], Smoking Cessation Medications and DC Order Prescriptions: New carvedilol 3.125 mg Tablet 3.125 mg PO BID 30 Days Qty: 60 0RF Continued Entresto 24-26 mg tablet 1 tab PO BID Qty: 180 3RF Rx Instructions: jacinta says q am .. first indicates bid...our old record says bid spironolactone 25 mg tablet 25 mg PO QAM Qty: 30 docusate sodium 100 mg capsule 100 mg PO BID furosemide 40 mg tablet 40 mg PO QAM Qty: 30 nitroglycerin 0.4 mg tablet, sublingual 0.4 mg SL Q5M PRN (Reason: chest pain) Qty: 25 atorvastatin 80 mg tablet 80 mg PO HS omeprazole 20 mg capsule,delayed release(/EC) 20 mg PO BID 90 Days Qty: 180 3RF cholecalciferol (vitamin D3) [Vitamin D3] 50 mcg (2,000 unit) Capsule 50 mcg PO QAM Trulicity 3 mg/0.5 mL pen injector 3 mg SUBCUT WK aspirin [Aspirin Childrens] 81 mg Tablet,Chewable 81 mg PO DAILY guaifenesin 400 mg Tablet 400 mg PO BID Discontinued carvedilol 6.25 mg tablet 6.25 mg PO AMY Treviño/Other Patient Handouts: Managing Type 2 Diabetes Admission Data Admit Date/Time: 06/29/22 02:44 Attending Provider: Shayna Frazier Admit Provider: Gibran Harris Primary Care Provider: Jose Alfredo Ames Other Providers: Gibran Harris ; Connor Patricia
== END 2022-07-02 16:53 | disposition home or self-care (01) | DRG 178 ==
LOC: EDSEX → ED 18:36 → SUATTDRO 06-29 02:44 → 2N 06-29 02:44